=== PATIENT | female | born 1995 | race American Indian/Alaskan Native ===

== ENCOUNTER 2021-06-29 15:37 | Emergency (ER) | payer OTHER ==
[2021-06-29 17:23] LABS: Basophils % (Auto) 0.5 % (0.0-1.8); Eosinophils % (Auto) 0.5 % (0.0-4.3); Hematocrit 41.2 % (30.3-42.9); Hemoglobin 13.1 gm/dl (10.1-14.3); Lymphocytes % (Auto) 23.2 % (13.4-35.0); Mean Corpuscular HGB Conc 32 % (30-34); Mean Corpuscular Volume 87 fl (79-97); Monocytes # (Auto) 0.7 K/mm3 (0.0-0.8); Monocytes % (Auto) 7.4 % (0.0-7.3); Platelet Count 308 K/mm3 (140-440); Red Blood Count 4.73 M/mm3 (3.65-5.03); Red Cell Distribution Width 15.1 % (13.2-15.2)
[2021-06-29 17:43] LABS: Alanine Aminotransferase 14 units/L (7-56); Albumin 4.9 g/dL (3.9-5); Blood Urea Nitrogen 9 mg/dL (7-17); Calcium 9.1 mg/dL (8.4-10.2); Hemolysis Index 8
[2021-06-29] MEDS ORDERED: SODIUM CHLORIDE 0.9% 1000 ML 1,000 ML IV ONE (17:57)
[2021-06-29 18:16] LABS: BUN/Creatinine Ratio 15
--- NOTE | 2021-06-29 18:21 | Emergency Department Report ---
ED General Adult HPI - General Chief complaint: Seizure Stated complaint: SEIZURE Time Seen by Provider: 06/29/21 15:40 Source: EMS Mode of arrival: Stretcher Limitations: No Limitations - History of Present Illness Initial comments: Patient presents with complaints of an episode of loss of consciousness that was witnessed by her co-workers, who are @ the bedside giving collateral hx. They state it lasted for a few minutes and was without convulsive jerking, bowel/urinary incontinence, tongue or lip biting. Patient states she felt generalized weakness prior to the episode. Denies any dizziness, numbness, weakness, [place], CP, SOB, palpitations before or after the episode. Also denies any vomiting, diarrhea, hematochezia, bloody or black tarry stools, vaginal bleeding. States she had been feeling very hungry and had not eaten all day prior to the episode. Severity scale (0 -10): 0 - Related Data Allergies Allergy/AdvReac Type Severity Reaction Status Date / Time No Known Allergies Allergy Verified 06/29/21 15:40 ED Review of Systems ROS: Stated complaint: SEIZURE Other details as noted in HPI Comment: All other systems reviewed and negative Constitutional: denies: chills, fever ED Past Medical Hx - Past Medical History Hx Psychiatric Treatment: Yes (anxiety) - Social History Smoking Status: Never Smoker ED Physical Exam - General Limitations: No Limitations General appearance: alert, in no apparent distress - Head Head exam: Present: atraumatic, normocephalic - Eye Eye exam: Present: PERRL, EOMI - ENT ENT exam: Present: mucous membranes moist, other (airway patent) - Neck Neck exam: Present: other (supple; no JVD) - Respiratory Respiratory exam: Present: other (good air entry, nml I:E, CTAB, no use of TEREZA) - Cardiovascular Cardiovascular Exam: Present: regular rate. Absent: rubs, gallop - GI/Abdominal GI/Abdominal exam: Present: soft, normal bowel sounds. Absent: distended, tenderness - Extremities Exam Extremities exam: Present: other (no lower extremity edema; non tender calves; neg Alberta's sign bilaterally) - Back Exam Back exam: Present: full ROM. Absent: tenderness - Neurological Exam Neurological exam: Present: alert, oriented X3, CN II-XII intact, other (GCS 15/15; NIH 0). Absent: motor sensory deficit - Skin Skin exam: Present: warm, normal color ED Course Vital Signs 06/29/21 06/29/21 15:41 16:16 Temperature 99.0 F Pulse Rate 85 Respiratory 18 Rate Blood Pressure 134/95 Blood Pressure 134/95 [Left] O2 Sat by Pulse 99 98 Oximetry ED Medical Decision Making - Lab Data Result diagrams: 06/29/21 16:56 06/29/21 16:56 Laboratory Tests 06/29/21 06/29/21 06/29/21 16:56 16:56 16:56 WBC 8.8 RBC 4.73 Hgb 13.1 Hct 41.2 MCV 87 MCH 28 MCHC 32 RDW 15.1 Plt Count 308 Lymph % (Auto) 23.2 [place] % (Auto) 7.4 H Eos % (Auto) 0.5 Baso % (Auto) 0.5 Lymph # (Auto) 2.0 [place] # (Auto) 0.7 Eos # (Auto) 0.0 Baso # (Auto) 0.0 Seg Neutrophils % 68.4 Seg Neutrophils # 6.0 Sodium 141 Potassium 4.2 Chloride 103.5 Carbon Dioxide 26 Anion Gap 16 BUN 9 Creatinine 0.6 Estimated GFR > 60 BUN/Creatinine Ratio 15 Glucose 94 Calcium 9.1 Total Bilirubin 0.20 AST 21 ALT 14 Alkaline Phosphatase 97 Total Creatine Kinase Troponin T < 0.010 Total Protein 8.1 Albumin 4.9 Albumin/Globulin Ratio 1.5 HCG, Qual Negative Urine Color Urine Turbidity Urine pH Ur Specific [place] Urine Protein Urine Glucose (UA) Urine Ketones Urine Blood Urine Nitrite Urine Bilirubin Urine Urobilinogen Ur Leukocyte Esterase Urine WBC (Auto) Urine RBC (Auto) U Epithel Cells (Auto) Urine Bacteria (Auto) Urine Mucus Urine Opiates Screen Urine Methadone Screen Ur Barbiturates Screen Ur Phencyclidine Scrn Ur Amphetamines Screen U Benzodiazepines Scrn Urine Cocaine Screen U Marijuana (THC) Screen Drugs of Abuse Note 06/29/21 06/29/21 06/29/21 16:56 19:26 19:26 WBC RBC Hgb Hct MCV MCH MCHC RDW Plt Count Lymph % (Auto) [place] % (Auto) Eos % (Auto) Baso % (Auto) Lymph # (Auto) [place] # (Auto) Eos # (Auto) Baso # (Auto) Seg Neutrophils % Seg Neutrophils # Sodium Potassium Chloride Carbon Dioxide Anion Gap BUN Creatinine Estimated GFR BUN/Creatinine Ratio Glucose Calcium Total Bilirubin AST ALT Alkaline Phosphatase Total Creatine Kinase 118 Troponin T Total Protein Albumin Albumin/Globulin Ratio HCG, Qual Urine Color Yellow Urine Turbidity Clear Urine pH 6.0 Ur Specific [place] 1.012 Urine Protein <15 mg/dl Urine Glucose (UA) Neg Urine Ketones Neg Urine Blood Mod Urine Nitrite Neg Urine Bilirubin Neg Urine Urobilinogen < 2.0 Ur Leukocyte Esterase Lg Urine WBC (Auto) 27.0 H Urine RBC (Auto) 3.0 U Epithel Cells (Auto) 8.0 Urine Bacteria (Auto) 1+ Urine Mucus Few Urine Opiates Screen Negative Urine Methadone Screen Negative Ur Barbiturates Screen Negative Ur Phencyclidine Scrn Negative Ur Amphetamines Screen Negative U Benzodiazepines Scrn Negative Urine Cocaine Screen Negative U Marijuana (THC) Screen Negative Drugs of Abuse Note Disclamer CXR: no acute cardiopulmonary process CT head: no acute intracranial process EKG: HR 60, SR, nml intervals, no significant ST changes in contiguous leads - Medical Decision Making Diff dz: - LOC-> likely 2/2 neurocardiogenic syncope and dehydration from extreme hunger with pangs. ICH, pneumonia, pneumothorax, testable recreational drug abuse ruled out. ACS, PE, ischemic CVA unlikely. Pyuria (with possible) UTI present concomitantly. received NS 1L bolus x 1 and ate a meal. Symptoms resolved. GCS 15/15. Critical care attestation.: If time is entered above; I have spent that time in minutes in the direct care of this critically ill patient, excluding procedure time. ED Disposition Clinical Impression: Syncope Disposition: 01 HOME / SELF CARE / HOMELESS Is pt being admited?: No Does the pt Need Aspirin: No Condition: Stable Instructions: Syncope, [id number], Syncope (ED) Referrals: PRIMARY CARE, [Primary Care Provider] - 3-5 Days Time of Disposition: 20:20
--- NOTE | 2021-06-29 18:23 | Cat Scan Report ---
NONENHANCED CT SCAN OF THE HEAD: INDICATION / CLINICAL INFORMATION: 25 years Female; loss of consciousness. TECHNIQUE: Routine CT head without contrast. All CT scans at this location are performed using CT dos e reduction for ALARA by means of automated exposure control. COMPARISON: None. FINDINGS: BRAIN / INTRACRANIAL CONTENTS: No acute hemorrhage, mass effect, midline shift, hydrocephalus, or acu te, large territorial infarct. No chronic infarct or focal atrophy. Normal brain volume and ventricul ar/sulcal size for age. No significant white matter abnormality. Pituitary gland height is within normal limits, pituitary gland appears prominent and with the increa sed is CT attenuation. MR scan of the pituitary would be of further help. CRANIOCERVICAL JUNCTION: No significant abnormality. ORBITS: No significant abnormality of visualized orbits. SINUSES / MASTOIDS: No significant abnormality of the visualized paranasal sinuses or mastoid air manohar ls. ADDITIONAL FINDINGS: None. IMPRESSION: No acute focal parenchymal lesion Pituitary gland appears generous and with increased attenuation; MRI scan of the pituitary would be o f further help Signer Name: Bev Cuellar MD Signed: 06/29/2021 6:19 PM Workstation Name: [id number]
--- NOTE | 2021-06-29 18:43 | XRay Report ---
CHEST 1 VIEW INDICATION / CLINICAL INFORMATION: Loss of consciousness. Dyspnea FINDINGS: SUPPORT DEVICES: None. HEART / MEDIASTINUM: No significant abnormality. LUNGS / PLEURA: No significant pulmonary or pleural abnormality. No pneumothorax. ADDITIONAL FINDINGS: No significant additional findings. IMPRESSION: 1. No acute findings. Signer Name: Brendon Tillman MD Signed: 06/29/2021 6:39 PM Workstation Name: [id number]
[2021-06-29 20:02] LABS: Bacteria,Urine 1+ /HPF (Negative); Bilirubin,Urine NEG (Negative); Blood,Urine MOD (Negative); Color,Urine Yellow (Yellow); Mucus,Urine FEW /HPF; Protein,Urine <15 mg/dL mg/dL (Negative); Urobilinogen,Urine < 2.0 mg/dL (<2.0)
[2021-06-29 20:07] LABS: Amphetamine Screen,Urine Negative; Benzodiazepines Screen,Urine Negative; Cannabinoid Screen,Urine Negative; Cocaine Screen,Urine Negative; Methadone Screen,Urine Negative; Opiate Screen,Urine Negative
[2021-06-29 23:24] VITALS: BP 122/67
--- NOTE | 2021-07-01 13:32 | Electrocardiograph Report ---
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
== END 2021-06-29 19:30 | disposition home or self-care (01) ==
LOC: ED 15:37
DX: R55 Syncope and collapse (principal); F41.9 Anxiety disorder, unspecified
CPT/HCPCS: 36415; 70450; 71045; 80053; 80307; 81001; 82550; 84484; 84703; 85025; 87086; 93005; 99285